=== PATIENT | male | born 2000 | race Caucasian/White ===

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

== ENCOUNTER → 2020-08-04 | Outpatient (CLI) | payer BC, OTHER ==
[2020-08-06 00:01] LABS: CHLAMYDIA TRACHOMATIS, NAA Negative (Negative)
== END | disposition home or self-care (01) ==
LOC: PLD 13:26 → LAB SHORT 13:26
PROVIDERS: Physician Assistant Medical
DX: N50.89 Other specified disorders of the male genital organs (principal)
CPT/HCPCS: 87491; 87591

== ENCOUNTER → 2021-05-14 | Outpatient (CLI) | payer BC, OTHER ==
[2021-05-16 21:06] LABS: CHLAMYDIA TRACHOMATIS, NAA Positive (Negative)
== END | disposition home or self-care (01) ==
LOC: LAB SHORT 15:04
PROVIDERS: Physician Assistant
DX: Z72.51 High risk heterosexual behavior (principal)
CPT/HCPCS: 87070; 87205; 87491; 87591

== ENCOUNTER → 2022-09-22 | Outpatient (CLI) | payer OTHER ==
[2022-09-25 14:09] LABS: CHLAMYDIA BY NAA Positive (Negative); GONOCOCCUS BY NAA Negative (Negative); TRICH VAG BY NAA Negative (Negative)
== END ==
LOC: LAB 17:18 → LAB SHORT 17:18
PROVIDERS: Physician Assistant Medical
DX: Z86.19 Personal history of other infectious and parasitic diseases (principal)
CPT/HCPCS: 87491; 87591; 87661

== ENCOUNTER 2023-06-03 18:34 | Emergency (ER) | payer OTHER ==
[~2023-06-03] VITALS: Ht 175.3 cm; Wt 65.8 kg
[2023-06-03 18:53] VITALS: BP 152/93
== END 2023-06-03 20:40 | disposition left against medical advice (07) ==
LOC: ER 18:34
DX: M25.561 Pain in right knee (principal); Z53.29 Procedure and treatment not carried out because of patient's decision for other reasons; M25.571 Pain in right ankle and joints of right foot; M54.9 Dorsalgia, unspecified; V43.62XA Car passenger injured in collision with other type car in traffic accident, initial encounter
CPT/HCPCS: 99283

== ENCOUNTER → 2025-02-01 | Outpatient (CLI) | payer OTHER ==
[2025-02-02 14:02] LABS: Chlamydia Trachomatis Urine NOT DETECTED (NOT DETECT); Neisseria Gonorrhoea Urine NOT DETECTED (NOT DETECT)
== END ==
LOC: LAB SHORT 17:34 → LAB 17:34
PROVIDERS: Physician Assistant
DX: Z72.51 High risk heterosexual behavior (principal)
CPT/HCPCS: 87086; 87491; 87591